=== PATIENT | male | born 1955 | race Caucasian/White ===

== ENCOUNTER 2019-07-20 13:12 | Observation (INO) ==
[2019-07-20 13:39] VITALS: BMI 25.8
--- NOTE | 2019-07-20 13:54 | DR.AMS ---
HPI - Time Seen Time seen: 13:47 - PCP Primary Care Physician: NFD - Complaint Cheif Complaint Doctors Comments: Patient is complaining of a diffuse headache for the past 2-3 hours. EMS states family member called them because patient had altered mental status when he woke up this morning he was incohorent and confused complaining of a headache. States patient went to bed 5 pm yesterday and usually sleep until noon but 1215 family notices his signs and symptoms. states he had a stroke with similar problems about four years ago and was in the hospital for three days. EMS states patient was alert with no weakness or problems walking when they evaluated him at home with equal and reactive pupils. States his glucose was 91. Patient was seeing Dr. Cool but has not got another doctor since he left. Patient knows today is Monday but states he is four months old. He chews tobacco and drinks about 3-4 beers daily. States he think he had a bleed on his last stroke. States he has been working at [employer] for three years and he has been two years and his birthday is [birth year]. He denies chest pain or SOB. He denies problems walking or any weakness. states it started last night with him getting up looking for something in his pants and could not verbalize what he was looking for. State he went through his dirty clothes and put back on a dirty shirt and did not realized he had it on. He was trying to turn the clock on with the remote control for the fan. Chief Complaint:: EMS BRINGS PT. IN WITH AMS. FAMILY INFORMS EMS THAT WHEN PT. WOKE THIS MORNING, HE WAS CONFUSED. PT. C/O HEADACHE. HX. OF CVA 4 YEARS AGO. - Reviewed Nurses Notes Reviewed: Yes - Source History Provided: Patient, EMS - Mode of Arrival Mode of Arrival: EMS - Timing Onset of Chief Complaint: 07/20/19 Came On: On Awakening Symptoms: Improving Symptom Onset: Unknown - Duration Duration: Constant How lon Duration: Hours - Quality Quality: Decreased Alertness, Confusion, Memory Loss - Severity Severity: Mild - Context Recent: None History Of: CVA - Associated Signs and Symptoms Associated Signs and Symptoms: Headache, Confusion, Change in Memory PMH - PMH Past Medical History: Yes Past Medical History: CVA Past Surgical History: No Surgical History: Unknown - Family History History of Family Medical Conditions: No - Social History Does patient currently use any type of tobacco product: Yes Have you used tobacco products in the last 12 months: Yes Type of Tobacco Use: DIPS Does any household member use tobacco: No Alcohol Use: None Do you use any recreational Drugs:: No Lives With: Family Lives Where: Home - infectious screening In the last 2 months have you had wt loss of >10#?: NO Have you had fever, night sweats or hemotysis?: No Have you traveled outside the country in the last 6 months?: No Isolation: Standard ROS - Review of Systems Constitutional: No Symptoms Reported Eyes: No Symptoms Reported ENTM: No Symptoms Reported Respiratoy: No Symptoms Reported. negative: See HPI, Productive Cough, Non- Productive Cough, Moist Cough, Dry Cough, Hacking Cough, Barking Cough, Brassy Cough, Orthopnea, Short of Breath, Stridor, Wheezing, Hemoptysis, Other Cardiovascular: No Symptoms Reported. negative: See HPI, Chest Pain, Edema, Palpitations, Syncope, Cyanosis, Skin Mottling, Other Gastrointestinal/Abdominal: No Symptoms Reported Genitourinary: No Symptoms Reported Neurological: No Symptoms Reported, Headache Musculoskeletal: No Symptoms Reported Integumentary: No Symptoms Reported. negative: See HPI, Change in Color, Change in Hair/Nails, Dryness, Lesions, Lumps, Rash, Itching, Wound, Bruises, Juandice, Other Hematologic/Lymphatic: No Symptoms Reported Endocrine: No Symptoms Reported Psychiatric: No Symptoms Reported. negative: See HPI, Anxiety, Depression, Hallucinations, Excessive crying, Suicidal, Other PE - General Limitations: No Limitations General Appearance: Alert, In No Apparent Distress - Head Head Exam: Normal Inspection, Atraumatic, Normocephalic Head Exam Physical: negative: Laceration, Abrasion, Contusion, Hematoma, Raccoon Eyes, Quiroga's Sign, Tenderness of Temporal Artery, CSF Rhinorrhea, CSF Otorrhea, Other - Eyes Eye exam: Normal Appearance, PERRL, EOMI. negative: Scleral Icterus, Conjunctival Injection, Nystagmus, Miosis, Mydrasis, Periorbital Swelling, Periorbital Tenderness, Other Pupils: Regular, Round: Bilateral, Reactive: Bilateral - ENT ENT Exam: Normal Exam, Normal Oropharynx, Normal External Ear Exam, Mucous Membranes Moist, TM's Normal Bilaterally (tobacco reminants in mouth and on lips; tongue protrudes midline) External Ear Exam: Normal External Inspection TM/Canal Exam: Bilateral Normal Nose Exam: Normal Nose Exam. negative: Sinus Tenderness, Nasal Deviation, Crepitus, Septal Hematoma, Laceration, Abrasion, Other Mouth Exam: Normal Inspection. negative: Drooling, Trismus, Lip Swelling, Tongue Elevation, Tongue Swelling, Laceration, Other Throat Exam: Normal Inspection. negative: Tonsillar Erythema, Tonsillomegaly, Tonsillar Exudate, R Peritonsillar Mass, L Peritonsillar Mass, Muffled Voice, Other - Neck Neck Exam: Normal Inspection, Full ROM, Trachea Midline. negative: Tenderness, Meningismus, Lymphadenopathy, Thyromegaly, Other - Chest Chest Inspection: Normal Inspection, Symmetric Chest Wall Rise - Respiratory Respiratory Exam: Normal Lung Sounds Bilat Respiratory Exam: Bilateral Clear to Auscultation - Cardiovascular Cardiovascular Exam: Regular Rate, Normal Rhythm, Normal Heart Sounds - Abdominal Exam Abdominal Exam: Normal Inspection, Normal Bowel Sounds, Soft. negative: Distention, Tenderness, Guarding, Rebound, Rigidity, Dimnished Bowel Sounds, Hyperactive Bowel Sounds, Hypoactive Bowel Sounds, Organomegaly, Trauma, Incision, Ascites, Mass, Bruit, Pulsatile Mass, Hernia, Other Abdominal Tenderness: negative: RUQ, RLQ, LUQ, LLQ, Epigastrium, Suprapubic, Diffuse, Mild, Moderate, Severe, Other - Extremities Extremities Exam: Normal Inspection, Full ROM, Normal Capillary Refill. negative: Tenderness, Edema, Joint Swelling, Calf Tenderness, Other - Back Back Exam: Normal Inspection, Full ROM. negative: Tenderness, (R) CVA Tenderness, (L) CVA Tenderness, Muscle Spasm, Paraspinal Tenderness, Vertebral Tenderness, Rashes, (R) Sciatic Notch Tenderness, (L) Sciatic Notch Tendern, (R) Straight Leg Raise, (L) Straight Leg Raise, Other - Neurological Neurological Exam: Alert, Oriented X3, CN II-XII Intact, Reflexes Normal. negative: Normal Gait (gait not tested) Patient Oriented To: Person, Place, Time Speech: Fluid Speech Cranial Nerve Exam: EOM Function (II, III, IV, ): Normal, Facial Sensation (V): Normal, Facial Palsy (VII): Normal, Gag reflex (XI): Normal, Spinal Ac cessory Function (XI): Normal, Tongue Deviation: Normal Cerebellar Function: Normal Vibratory/Position. negative: Normal Gait (gait not tested) Motor Strength - LUE: 5/5 Motor Strength - RUE: 5/5 Motor Strength - LLE: 5/5 Motor Strength - RLE: 5/5 Upper Motor Neuron Exam: Babinski Sign: Normal Sensory Exam Upper Extremity: Light Touch: Normal, 2 Point Discrimination: Normal DTR: bicep (L): 2+, bicep (R): 2+, Patellar (L): 2+, patellar (R): 2+ - Psychological Psychiatric Exam: Normal Affect, Normal Mood. negative: Depressed, Agitated, Anxious, Flat Affect, Manic, Homicidal Ideation, Suicidal Ideation, Other Expanded Psychiatric Exam: negative: Poor Eye Contact, Pressured Speech, Echolalia, Psychomotor Agitation, Delusional, Paranoid, Catatonic, Mute, Perseverating, Euphoric, Restlessness, Flight of Ideas, Loose Associations, Uncooperative, Refuses to Answer, Auditory Hallucinations, Visual Hallucinations, Confabulating, Other - Skin Skin Exam: Warm, Dry, Intact, Normal Color - Vitals Vital Signs: Temp Pulse Pulse Resp BP BP BP 07/20/19 15:09 17 07/20/19 15:04 78 17 124/75 07/20/19 14:00 80 17 132/75 07/20/19 13:35 98.9 F 90 17 139/75 12/30/15 10:47 133/80 01/21/14 04:00 110/66 01/20/14 16:00 167/68 Pulse Ox 07/20/19 15:09 07/20/19 15:04 95 07/20/19 14:00 95 07/20/19 13:35 94 L 12/30/15 10:47 01/21/14 04:00 01/20/14 16:00 Course - Consultation Called: 15:28 Call Returned: 15:28 (Dr. Melton to admit) - Education/Counseling Education/Counseling: Patient, Family Educated On: Treatment, Diagnosis, Needs for Follow Up ROR - Labs Reviewed Laboratory Results Reviewed?: Yes (All labs and x-ray results reviewed and discussed with patient and spouse) Result Diagrams: 07/20/19 14:02 07/20/19 14:02 - XRAY XRAY Interpreted by: Radiologist (CT brain: No acute intracranial abnormalities.) XRAY Findings: CXR: Mild nonspecific pulmonary hyperinflation. fibrosis right apex - EKG Rate: 73 [place]: Normal Rhythm: NSR Block: None Hypertrophy: None ST: Nonsp - Labs Reviewed Laboratory: WBC 7.3 X10^3/uL (3.6-10.0) 07/20/19 14:02 RBC 4.63 X10^6/uL (4.7-6.0) L 07/20/19 14:02 Hgb 15.5 g/dL (13.5-18.0) 07/20/19 14:02 Hct 44.5 % (42.0-54.0) 07/20/19 14:02 MCV 96.1 fL (80.0-100.0) 07/20/19 14:02 MCH 33.4 pg (27.0-34.0) 07/20/19 14:02 MCHC 34.8 g/dL (33.0-35.0) 07/20/19 14:02 RDW 12.6 % (11.6-16.5) 07/20/19 14:02 Plt Count 339 X10^3/uL (150.0-450.0) 07/20/19 14:02 MPV 6.8 fL (7.4-11.0) L 07/20/19 14:02 Neut % (Auto) 66.7 % (42.0-75.0) 07/20/19 14:02 Lymph % (Auto) 19.5 % (21.0-51.0) L 07/20/19 14:02 [place] % (Auto) 11.3 % (0.0-13.0) 07/20/19 14:02 Eos % (Auto) 1.8 % (0.9-2.9) 07/20/19 14:02 Baso % (Auto) 0.7 % (0.2-1.0) 07/20/19 14:02 Neut # (Auto) 4.9 x10^3/uL (2.2-4.8) H 07/20/19 14:02 Lymph # (Auto) 1.4 X10^3/uL (1.3-2.9) 07/20/19 14:02 [place] # (Auto) 0.8 x10^3/uL (0.3-0.8) 07/20/19 14:02 Eos # (Auto) 0.1 x10^3/uL (0.0-0.2) 07/20/19 14:02 Baso # (Auto) 0.1 X10^3/uL (0.0-0.1) 07/20/19 14:02 Absolute Nucleated RBC 0.0 /100WBC 07/20/19 14:02 PT 13.3 SECONDS (11.8-14.3) 07/20/19 14:02 INR Target Range - 07/20/19 14:02 INR 1.05 (0.8-1.3) 07/20/19 14:02 APTT 30.8 SECONDS (22.9-36.5) 07/20/19 14:02 PTT Comment - 07/20/19 14:02 D-Dimer < 100 ng/mL (0-400) 07/20/19 14:02 Sodium 142 mmol/L (136-145) 07/20/19 14:02 Corrected Sodium TNP 07/20/19 14:02 Potassium 4.3 mmol/L (3.5-5.1) 07/20/19 14:02 Chloride 103 mmol/L (98-107) 07/20/19 14:02 Carbon Dioxide 27.3 mmol/L (21-32) 07/20/19 14:02 BUN 9 mg/dL (7-18) 07/20/19 14:02 Creatinine 1.25 mg/dL (0.70-1.30) 07/20/19 14:02 Est GFR (MDRD) Af Amer > 60 (>60) 07/20/19 14:02 Est GFR (MDRD) Non-Af > 60 (>60) 07/20/19 14:02 Glucose 93 mg/dL (65-99) 07/20/19 14:02 Calcium 8.7 mg/dL (8.5-10.1) 07/20/19 14:02 Corrected Calcium TNP 07/20/19 14:02 Magnesium 2.0 mg/dL (1.7-2.9) 07/20/19 14:02 Total Bilirubin 0.70 mg/dL (0.2-1.0) 07/20/19 14:02 AST 20 Units/L (15-37) 07/20/19 14:02 ALT 23 Units/L (12-78) 07/20/19 14:02 Alkaline Phosphatase 37 Units/L (46-116) L 07/20/19 14:02 Creatine Kinase 50 Units/L (39-308) 07/20/19 14:02 CK-MB (CK-2) < 1.0 ng/mL (0-4.0) 07/20/19 14:02 CK/CKMB % Calc 2.0 % (<4) 07/20/19 14:02 Troponin I < 0.02 ng/mL (0-1.5) 07/20/19 14:02 Total Protein 7.2 g/dL (6.4-8.2) 07/20/19 14:02 Albumin 3.8 g/dL (3.4-5.0) 07/20/19 14:02 Globulin 3.4 g/dL (2.5-4.5) 07/20/19 14:02 Albumin/Globulin Ratio 1.1 Ratio (1.1-2.1) 07/20/19 14:02 Specimen Type Random urine 07/20/19 14:13 Urine Color Yellow (YELLOW) 07/20/19 14:13 Urine Appearance Clear (CLEAR) 07/20/19 14:13 Urine pH 5.0 (5.0 - 8.0) 07/20/19 14:13 Ur Specific [place] 1.025 (1.000-1.030) 07/20/19 14:13 Urine Protein Negative (NEGATIVE) 07/20/19 14:13 Urine Glucose (UA) Negative (NEGATIVE) 07/20/19 14:13 Urine Ketones 3+ (NEGATIVE) 07/20/19 14:13 Urine Occult Blood Negative (NEGATIVE) 07/20/19 14:13 Urine Nitrite Negative (NEGATIVE) 07/20/19 14:13 Urine Bilirubin Negative (NEGATIVE) 07/20/19 14:13 Urine Urobilinogen Normal (NORMAL) 07/20/19 14:13 Ur Leukocyte Esterase Negative (NEGATIVE) 07/20/19 14:13 Urine Opiates Screen Negative (NEG=<300) 07/20/19 14:13 Urine Methadone Screen Negative (NEG=<300) 07/20/19 14:13 Ur Barbiturates Screen Negative (NEG=<200) 07/20/19 14:13 Ur Phencyclidine Scrn Negative (NEG=<25) 07/20/19 14:13 Ur Amphetamines Screen Negative (NEG=<1000) 07/20/19 14:13 U Benzodiazepines Scrn Negative (NEG=<200) 07/20/19 14:13 Urine Cocaine Screen Negative (NEG=<300) 07/20/19 14:13 U Marijuana (THC) Screen Negative (NEG=<50) 07/20/19 14:13 Ethyl Alcohol mg/dL < 3 mg/dL (0-19.9) 07/20/19 14:02 Opioid - Opioid Risk Tool Age (Margarito box if 16-45): No History of Preadolescent Sexual Abuse: No Total: 0 Total Score Risk Category: Low Risk - Diagnosis Discharge Problem: Acute alteration in mental status, Confusion with non-focal neuro exam, Admits to alcohol use - Discharge Plan Disposition: ADMITTED INPATIENT Condition: Stable - Follow ups/Referrals Follow ups/Referrals: NFD,None [Primary Care Provider] - 3 days - Instructions
--- NOTE | 2019-07-20 13:57 | CT ---
HISTORYAltered mental statusSTUDYCT of the brain without contrastCOMPARISONNoneNoncontrast CT of the head is performed in the axial plane and reconstructed with multiplanar imaging techniques.FINDINGSThere is no evidence of an acute intracranial hemorrhage or extra-axial fluid collection. There is no mass effect, shift or evidence of cerebral edema. The ventricular size is normal. Age-appropriate cortical volume loss is evident. There is no well-defined, cortically based, acute stage, large artery territorial infarction. The imaged paranasal sinuses and mastoid air cells are predominantly clear. The calvarium is intact.IMPRESSIONNo acute intracranial abnormalities.If there is definite, focal, acute neurologic deficit, follow up imaging is recommended to evaluate for evolutionary changes. MRI with DWI provides the highest level of initial sensitivity for the detection of acute ischemic infarcts.Electronically signed by: FAVIO WHITNEY (Jul 20, 2019 13:55:50)
[2019-07-20] MEDS ORDERED: NS 1000 ML 1,000 ML IV SCH (14:00)
[2019-07-20 14:10] LABS: BASOPHILS # (AUTO) 0.1 X10^3/uL (0.0-0.1); BASOPHILS % (AUTO) 0.7 % (0.2-1.0); EOSINOPHILS # (AUTO) 0.1 x10^3/uL (0.0-0.2); EOSINOPHILS % (AUTO) 1.8 % (0.9-2.9); HEMATOCRIT 44.5 % (42.0-54.0); HEMOGLOBIN 15.5 g/dL (13.5-18.0); LYMPHOCYTES # (AUTO) 1.4 X10^3/uL (1.3-2.9); LYMPHOCYTES % (AUTO) 19.5 % (21.0-51.0); MEAN CORPUSCULAR HEMOGLOBIN 33.4 pg (27.0-34.0); MEAN CORPUSCULAR HGB CONC 34.8 g/dL (33.0-35.0); MEAN CORPUSCULAR VOLUME 96.1 fL (80.0-100.0); MEAN PLATELET VOLUME 6.8 fL (7.4-11.0); MONOCYTES # (AUTO) 0.8 x10^3/uL (0.3-0.8); MONOCYTES % (AUTO) 11.3 % (0.0-13.0); NEUTROPHILS # (AUTO) 4.9 x10^3/uL (2.2-4.8); NEUTROPHILS % (AUTO) 66.7 % (42.0-75.0); PLATELET COUNT 339 X10^3/uL (150.0-450.0); RED BLOOD COUNT 4.63 X10^6/uL (4.7-6.0); RED CELL DISTRIBUTION WIDTH 12.6 % (11.6-16.5); WHITE BLOOD COUNT 7.3 X10^3/uL (3.6-10.0)
[2019-07-20] MEDS ORDERED: NS 1000 ML 1,000 ML ONE (14:14)
--- NOTE | 2019-07-20 14:18 | RAD ---
HISTORYChest painSTUDYAP chestCOMPARISONNoneFINDINGSNormal heart size. The lungs are clear, slightly hyperaerated. There is no evidence for infiltrate, pulmonary edema, pneumothorax or pleural fluid. There is suggestion of mild fibrotic scarring in the right apex, partly obscured by overlying bony structures.IMPRESSIONMild nonspecific pulmonary hyperinflation. 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
[2019-07-20] MEDS ORDERED: TORADOL 30 MG VIAL IVP ONE (14:21)
[2019-07-20 14:27] LABS: BLOOD UREA NITROGEN 9 mg/dL (7-18); CALCIUM 8.7 mg/dL (8.5-10.1); CARBON DIOXIDE 27.3 mmol/L (21-32); CHLORIDE 103 mmol/L (98-107); CREATININE 1.25 mg/dL (0.70-1.30); SODIUM 142 mmol/L (136-145); TROPONIN I < 0.02 ng/mL (0-1.5); eGFR NON BLACK RACES > 60 (>60)
[2019-07-20 14:30] LABS: BILIRUBIN,URINE NEGATIVE (NEGATIVE); BLOOD/HEMOGLOBIN,URINE NEGATIVE (NEGATIVE); GLUCOSE, URINE NEGATIVE (NEGATIVE); KETONES,URINE 3+ (NEGATIVE); LEUKOCYTE ESTERASE ,URINE NEGATIVE (NEGATIVE); NITRITES,URINE NEGATIVE (NEGATIVE); PROTEIN,URINE NEGATIVE (NEGATIVE); UROBILINOGEN,URINE NORMAL (NORMAL)
[2019-07-20 14:31] LABS: ALANINE AMINOTRANSFERASE 23 Units/L (12-78); ALBUMIN 3.8 g/dL (3.4-5.0); ALKALINE PHOSPHATASE 37 Units/L (46-116); ASPARTATE AMINO TRANSFERASE 20 Units/L (15-37); BLOOD ALCOHOL < 3 mg/dL (0-19.9); CREATINE KINASE 50 Units/L (39-308); CREATINE KINASE MB < 1.0 ng/mL (0-4.0); TOTAL PROTEIN 7.2 g/dL (6.4-8.2)
[2019-07-20 14:31] LABS: APPEARANCE,URINE CLEAR (CLEAR); COLOR,URINE YELLOW (YELLOW)
[2019-07-20] MEDS ORDERED: TORADOL 30 MG VIAL ONE (15:07)
[2019-07-20] MEDS ORDERED: THIAMINE HCL INJ IM ONE (15:25)
[2019-07-20] MEDS: NS 1000 ML 1,000 ML IV SCH ×2 (16:30→23:31)
[2019-07-20] MEDS ORDERED: THIAMINE HCL INJ ONE (17:53)
[2019-07-20] MEDS ORDERED: TYLENOL 325 MG TAB PO PRN (19:32)
[2019-07-21 05:37] LABS: BASOPHILS % (AUTO) 0.6 % (0.2-1.0); EOSINOPHILS # (AUTO) 0.3 x10^3/uL (0.0-0.2); EOSINOPHILS % (AUTO) 4.1 % (0.9-2.9); HEMATOCRIT 40.4 % (42.0-54.0); LYMPHOCYTES # (AUTO) 1.7 X10^3/uL (1.3-2.9); LYMPHOCYTES % (AUTO) 25.3 % (21.0-51.0); MEAN CORPUSCULAR HEMOGLOBIN 33.4 pg (27.0-34.0); MEAN CORPUSCULAR HGB CONC 34.7 g/dL (33.0-35.0); MEAN CORPUSCULAR VOLUME 96.2 fL (80.0-100.0); MEAN PLATELET VOLUME 7.5 fL (7.4-11.0); MONOCYTES # (AUTO) 0.8 x10^3/uL (0.3-0.8); MONOCYTES % (AUTO) 12.9 % (0.0-13.0); NEUTROPHILS # (AUTO) 3.7 x10^3/uL (2.2-4.8); NEUTROPHILS % (AUTO) 57.1 % (42.0-75.0); PLATELET COUNT 295 X10^3/uL (150.0-450.0); RED CELL DISTRIBUTION WIDTH 12.2 % (11.6-16.5); WHITE BLOOD COUNT 6.5 X10^3/uL (3.6-10.0)
[2019-07-21 06:02] LABS: CHOL/HDL RATIO 2.3 (0.0-5.0)
[2019-07-21 08:09] LABS: ALANINE AMINOTRANSFERASE 21 Units/L (12-78); ALBUMIN 3.1 g/dL (3.4-5.0); ALKALINE PHOSPHATASE 32 Units/L (46-116); ASPARTATE AMINO TRANSFERASE 22 Units/L (15-37); BLOOD UREA NITROGEN 8 mg/dL (7-18); CALCIUM 8.2 mg/dL (8.5-10.1); CARBON DIOXIDE 26.6 mmol/L (21-32); CHLORIDE 106 mmol/L (98-107); COR CA(FOR HYPOALB) 8.9 mg/dL (8.5-10.1); CREATININE 1.01 mg/dL (0.70-1.30); SODIUM 143 mmol/L (136-145); TOTAL PROTEIN 6.1 g/dL (6.4-8.2); eGFR NON BLACK RACES > 60 (>60)
[2019-07-21] MEDS: NS 1000 ML 1,000 ML IV SCH ×3 (09:00→23:10)
--- NOTE | 2019-07-21 11:15 | DR.H&P ---
H&P History & Physical for Day of: H&P Date: 07/21/19 Chief Complaint Chief Complaint: Confusion, Weakness Allergies Allergies Allergy/AdvReac Type Severity Reaction Status Date / Time No Known Drug Allergies Allergy Verified 07/20/19 13:39 History of Present Illness History of Present Illness: Pt is a 64 yo m pmhx CVA, presenting after having acute confusion, aphasia, and some weakness on left side of body. Per who witnessed the event, pt woke up early Monday morning and was confused, using the remote control for the fan to control the clock. He was also mixing up his words and having difficulty findings the correct words to say. She did not notice any facial droop or slurred speech but patient does state he feels weaker on left side of body. His became concerned and called 911. In ED, EKG:NSR, CT head negative, EtOH <3, and UDS negative. Past Medical History Past Medical History: CVA Past Surgical History Surgical History: No History Family History Family Medical History: Hypertension Social History Does patient currently use any type of tobacco product: Yes Have you used tobacco products in the last 12 months: Yes Type of Tobacco Use: Dips Does any household member use tobacco: No Alcohol Use: DAILY Drug Use: None Medications Home Medications: No Known Drug Allergies Allergy (Verified 07/20/19 13:39) CONTINUE taking the following medications NK 07/20/19 [History] Labs Result Diagrams: 07/21/19 04:34 07/21/19 04:34 Labs: Laboratory WBC 6.5 X10^3/uL (3.6-10.0) 07/21/19 04:34 RBC 4.20 X10^6/uL (4.7-6.0) L 07/21/19 04:34 Hgb 14.0 g/dL (13.5-18.0) 07/21/19 04:34 Hct 40.4 % (42.0-54.0) L 07/21/19 04:34 MCV 96.2 fL (80.0-100.0) 07/21/19 04:34 MCH 33.4 pg (27.0-34.0) 07/21/19 04:34 MCHC 34.7 g/dL (33.0-35.0) 07/21/19 04:34 RDW 12.2 % (11.6-16.5) 07/21/19 04:34 Plt Count 295 X10^3/uL (150.0-450.0) 07/21/19 04:34 MPV 7.5 fL (7.4-11.0) 07/21/19 04:34 Neut % (Auto) 57.1 % (42.0-75.0) 07/21/19 04:34 Lymph % (Auto) 25.3 % (21.0-51.0) 07/21/19 04:34 [place] % (Auto) 12.9 % (0.0-13.0) 07/21/19 04:34 Eos % (Auto) 4.1 % (0.9-2.9) H 07/21/19 04:34 Baso % (Auto) 0.6 % (0.2-1.0) 07/21/19 04:34 Neut # (Auto) 3.7 x10^3/uL (2.2-4.8) 07/21/19 04:34 Lymph # (Auto) 1.7 X10^3/uL (1.3-2.9) 07/21/19 04:34 [place] # (Auto) 0.8 x10^3/uL (0.3-0.8) 07/21/19 04:34 Eos # (Auto) 0.3 x10^3/uL (0.0-0.2) H 07/21/19 04:34 Baso # (Auto) 0.0 X10^3/uL (0.0-0.1) 07/21/19 04:34 Absolute Nucleated RBC 0.0 /100WBC 07/21/19 04:34 PT 13.3 SECONDS (11.8-14.3) 07/20/19 14:02 INR Target Range - 07/20/19 14:02 INR 1.05 (0.8-1.3) 07/20/19 14:02 APTT 30.8 SECONDS (22.9-36.5) 07/20/19 14:02 PTT Comment - 07/20/19 14:02 Fibrinogen 359 mg/dL (239-489) 07/20/19 14:02 D-Dimer < 100 ng/mL (0-400) 07/20/19 14:02 Sodium 143 mmol/L (136-145) 07/21/19 04:34 Corrected Sodium TNP 07/21/19 04:34 Potassium 4.1 mmol/L (3.5-5.1) 07/21/19 04:34 Chloride 106 mmol/L (98-107) 07/21/19 04:34 Carbon Dioxide 26.6 mmol/L (21-32) 07/21/19 04:34 BUN 8 mg/dL (7-18) 07/21/19 04:34 Creatinine 1.01 mg/dL (0.70-1.30) 07/21/19 04:34 Est GFR (MDRD) Af Amer > 60 (>60) 07/21/19 04:34 Est GFR (MDRD) Non-Af > 60 (>60) 07/21/19 04:34 Glucose 87 mg/dL (65-99) 07/21/19 04:34 Calcium 8.2 mg/dL (8.5-10.1) L 07/21/19 04:34 Corrected Calcium 8.9 mg/dL (8.5-10.1) 07/21/19 04:34 Magnesium 2.0 mg/dL (1.7-2.9) 07/20/19 14:02 Total Bilirubin 0.50 mg/dL (0.2-1.0) 07/21/19 04:34 AST 22 Units/L (15-37) 07/21/19 04:34 ALT 21 Units/L (12-78) 07/21/19 04:34 Alkaline Phosphatase 32 Units/L (46-116) L 07/21/19 04:34 Creatine Kinase 50 Units/L (39-308) 07/20/19 14:02 CK-MB (CK-2) < 1.0 ng/mL (0-4.0) 07/20/19 14:02 CK/CKMB % Calc 2.0 % (<4) 07/20/19 14:02 Troponin I < 0.02 ng/mL (0-1.5) 07/20/19 14:02 Total Protein 6.1 g/dL (6.4-8.2) L 07/21/19 04:34 Albumin 3.1 g/dL (3.4-5.0) L 07/21/19 04:34 Globulin 3.0 g/dL (2.5-4.5) 07/21/19 04:34 Albumin/Globulin Ratio 1.0 Ratio (1.1-2.1) L 07/21/19 04:34 Triglycerides 33 mg/dL (0-150) 07/21/19 04:34 Cholesterol 131 mg/dL (0-200) 07/21/19 04:34 LDL Cholesterol, Calc 67 mg/dL (0-100) 07/21/19 04:34 HDL Cholesterol 57 mg/dL (40-60) 07/21/19 04:34 Cholesterol/HDL Ratio 2.3 (0.0-5.0) 07/21/19 04:34 Specimen Type Random urine 07/20/19 14:13 Urine Color Yellow (YELLOW) 07/20/19 14:13 Urine Appearance Clear (CLEAR) 07/20/19 14:13 Urine pH 5.0 (5.0 - 8.0) 07/20/19 14:13 Ur Specific [place] 1.025 (1.000-1.030) 07/20/19 14:13 Urine Protein Negative (NEGATIVE) 07/20/19 14:13 Urine Glucose (UA) Negative (NEGATIVE) 07/20/19 14:13 Urine Ketones 3+ (NEGATIVE) 07/20/19 14:13 Urine Occult Blood Negative (NEGATIVE) 07/20/19 14:13 Urine Nitrite Negative (NEGATIVE) 07/20/19 14:13 Urine Bilirubin Negative (NEGATIVE) 07/20/19 14:13 Urine Urobilinogen Normal (NORMAL) 07/20/19 14:13 Ur Leukocyte Esterase Negative (NEGATIVE) 07/20/19 14:13 Urine Opiates Screen Negative (NEG=<300) 07/20/19 14:13 Urine Methadone Screen Negative (NEG=<300) 07/20/19 14:13 Ur Barbiturates Screen Negative (NEG=<200) 07/20/19 14:13 Ur Phencyclidine Scrn Negative (NEG=<25) 07/20/19 14:13 Ur Amphetamines Screen Negative (NEG=<1000) 07/20/19 14:13 U Benzodiazepines Scrn Negative (NEG=<200) 07/20/19 14:13 Urine Cocaine Screen Negative (NEG=<300) 07/20/19 14:13 U Marijuana (THC) Screen Negative (NEG=<50) 07/20/19 14:13 Ethyl Alcohol mg/dL < 3 mg/dL (0-19.9) 07/20/19 14:02 Review of Systems Constitutional: No Symptoms Reported Eyes: No Symptoms Reported ENT: No Symptoms Reported Respiratory: No Symptoms Reported Cardiovascular: No Symptoms Reported Gastrointestinal: No Symptoms Reported Genitourinary: No Symptoms Reported Musculoskeletal: No Symptoms Reported Skin: No Symptoms Reported Neurological: Weakness (LUE and LLE ), Confusion and Other (Aphasia ) Physical Exam Vital Signs: Temperature 97.7 F Pulse Rate [Right Brachial] 68 Pulse Rate [Left Brachial] 94 Pulse Rate 90 Respiratory Rate 20 Blood Pressure [Left Arm] 123/72 Blood Pressure [Right Arm] 121/73 Blood Pressure 139/75 O2 Sat by Pulse Oximetry 97 Oriented: Person and Place Eyes: Normal Ear: Normal Nose: Normal Throat: Normal Respiratory: Clear Throughout Cardiovascular: Normal : Normal Auscultation: Bowel Sounds: Normal Palpation: Normal Tenderness: Normal Skin: Normal Psychiatric: Normal Mood Description: Calm Speech Pattern: Aphasic (Unable to say appropriate words to describe) Assessment/Plan (1) Aphasia: Status: Acute Plan: Will order MRI brain, Echo, and Carotid U/S. Labs, including RPR and HIV. Continue to monitor and follow up AM labs. (2) Confusion: Status: Acute (3) Weakness: Status: Acute Plan: LUE and LLE strength 4/5 (4) Admits to alcohol use: Status: Acute Plan: Multivitamin, Thiamine Continue to monitor for withdrawal sx, Ativan prn. Review H&P Reviewed: Yes Patient was examined?: Yes
[2019-07-21] MEDS: VITAMIN B-1 PO SCH (14:17)
[2019-07-21] MEDS: TAB-A-VITE PO SCH (14:17)
[2019-07-21] MEDS: ASPIRIN 81 MG CHEWTAB PO SCH (14:17)
[2019-07-21] MEDS: ATIVAN TAB 0.5 MG PO PRN (14:18)
[2019-07-21] MEDS: LIPITOR TAB 40 MG PO SCH (14:18)
[2019-07-22 05:31] LABS: BASOPHILS % (AUTO) 0.7 % (0.2-1.0); EOSINOPHILS # (AUTO) 0.3 x10^3/uL (0.0-0.2); EOSINOPHILS % (AUTO) 3.6 % (0.9-2.9); HEMATOCRIT 39.3 % (42.0-54.0); HEMOGLOBIN 13.7 g/dL (13.5-18.0); LYMPHOCYTES # (AUTO) 1.9 X10^3/uL (1.3-2.9); LYMPHOCYTES % (AUTO) 26.6 % (21.0-51.0); MEAN CORPUSCULAR HEMOGLOBIN 33.6 pg (27.0-34.0); MEAN CORPUSCULAR HGB CONC 34.8 g/dL (33.0-35.0); MEAN CORPUSCULAR VOLUME 96.4 fL (80.0-100.0); MEAN PLATELET VOLUME 7.3 fL (7.4-11.0); MONOCYTES # (AUTO) 0.7 x10^3/uL (0.3-0.8); MONOCYTES % (AUTO) 9.4 % (0.0-13.0); NEUTROPHILS # (AUTO) 4.3 x10^3/uL (2.2-4.8); NEUTROPHILS % (AUTO) 59.7 % (42.0-75.0); PLATELET COUNT 305 X10^3/uL (150.0-450.0); RED BLOOD COUNT 4.08 X10^6/uL (4.7-6.0); RED CELL DISTRIBUTION WIDTH 12.9 % (11.6-16.5); WHITE BLOOD COUNT 7.2 X10^3/uL (3.6-10.0)
[2019-07-22 05:36] LABS: ALANINE AMINOTRANSFERASE 17 Units/L (12-78); ALBUMIN 2.9 g/dL (3.4-5.0); ALKALINE PHOSPHATASE 26 Units/L (46-116); ASPARTATE AMINO TRANSFERASE 13 Units/L (15-37); BLOOD UREA NITROGEN 4 mg/dL (7-18); CALCIUM 7.8 mg/dL (8.5-10.1); CARBON DIOXIDE 26.6 mmol/L (21-32); CHLORIDE 108 mmol/L (98-107); CHOL/HDL RATIO 2.6 (0.0-5.0); CHOLESTEROL 131 mg/dL (0-200); COR CA(FOR HYPOALB) 8.7 mg/dL (8.5-10.1); CREATININE 0.93 mg/dL (0.70-1.30); HDL CHOLESTEROL 50 mg/dL (40-60); SODIUM 143 mmol/L (136-145); TOTAL PROTEIN 5.8 g/dL (6.4-8.2); TRIGLYCERIDES 41 mg/dL (0-150); eGFR NON BLACK RACES > 60 (>60)
--- NOTE | 2019-07-22 08:48 | VAS ---
HISTORYAcute confusionSTUDYCarotid duplex ultrasoundCOMPARISONNoneFINDINGSThere is a small calcified plaque in the left carotid bulb near the external carotid artery. There is good antegrade flow in the vertebral arteries. Peak systolic velocity in the right internal carotid artery is 78.3 cm/second and in the distal right common carotid artery is 67.3 for ratio of 1.16. Peak systolic velocity in the left internal carotid artery is 83.8 cm/second and in the distal left common carotid artery is 88.2 for ratio 0.96.IMPRESSIONno evidence for carotid stenosis.Electronically signed by: LILIBETH SARGENT (Jul 22, 2019 08:46:53)
[2019-07-22] MEDS: NS 1000 ML 1,000 ML IV SCH ×3 (08:52→19:23)
[2019-07-22] MEDS: TAB-A-VITE PO SCH (08:55)
[2019-07-22] MEDS: LIPITOR TAB 40 MG PO SCH (08:55)
[2019-07-22] MEDS: ASPIRIN 81 MG CHEWTAB PO SCH (08:56)
--- NOTE | 2019-07-22 09:21 | PCM.PROG ---
Progress Note Progress Note for Day of Date of Exam: 07/22/19 Subjective Subjective: Pt is a 64 yo m pmhx CVA, admitted for CVA rule out after having acute confusion, aphasia, and some weakness on left side of body. Today pt reports feeling a little better. He believes his strength has returned and he was able to verbalize the date when asked. Labs:RPR negative, HIV/MRI brai n/Echo/Carotid U/S pending. Pt is scheduled today to have imaging done. Continue to monitor and follow up results. Past Medical Family Social History Past Med/Fam/Surg Hx: No changes since H&P Allergies: Allergies No Known Drug Allergies Allergy (Verified 07/20/19 13:39) Review of Systems ROS: No change since H&P Vital Signs and I&O's Vital Signs: Temperature 98.3 F Pulse Rate [Right Brachial] 73 Pulse Rate [Left Brachial] 94 Pulse Rate 90 Respiratory Rate 20 Blood Pressure [Left Arm] 116/69 Blood Pressure [Right Arm] 136/76 Blood Pressure 139/75 O2 Sat by Pulse Oximetry 97 Intake and Output: Intake & Output 07/19/19 07/20/19 07/21/19 07/22/19 23:59 23:59 23:59 23:59 Intake Total 860 / 860 2565 / 2565 0 / 0 Output Total 350 / 350 450 / 450 Balance 510 / 510 2115 / 2115 0 / 0 Physical Exam Oriented: Time, Person and Place Eyes: Normal Ear: Normal Nose: Normal Throat: Normal Respiratory: Normal Cardiovascular: Normal : Normal Auscultation: Bowel Sounds: Normal Tenderness: Normal Skin: Normal Musculoskeletal: Normal Psychiatric: Normal Mood Description: Calm and Appropriate Speech Pattern: Clear and Appropriate Laboratory and Diagnostics Result Diagrams: 07/22/19 04:40 07/22/19 04:40 Labs: Laboratory WBC 7.2 X10^3/uL (3.6-10.0) 07/22/19 04:40 RBC 4.08 X10^6/uL (4.7-6.0) L 07/22/19 04:40 Hgb 13.7 g/dL (13.5-18.0) 07/22/19 04:40 Hct 39.3 % (42.0-54.0) L 07/22/19 04:40 MCV 96.4 fL (80.0-100.0) 07/22/19 04:40 MCH 33.6 pg (27.0-34.0) 07/22/19 04:40 MCHC 34.8 g/dL (33.0-35.0) 07/22/19 04:40 RDW 12.9 % (11.6-16.5) 07/22/19 04:40 Plt Count 305 X10^3/uL (150.0-450.0) 07/22/19 04:40 MPV 7.3 fL (7.4-11.0) L 07/22/19 04:40 Neut % (Auto) 59.7 % (42.0-75.0) 07/22/19 04:40 Lymph % (Auto) 26.6 % (21.0-51.0) 07/22/19 04:40 [place] % (Auto) 9.4 % (0.0-13.0) 07/22/19 04:40 Eos % (Auto) 3.6 % (0.9-2.9) H 07/22/19 04:40 Baso % (Auto) 0.7 % (0.2-1.0) 07/22/19 04:40 Neut # (Auto) 4.3 x10^3/uL (2.2-4.8) 07/22/19 04:40 Lymph # (Auto) 1.9 X10^3/uL (1.3-2.9) 07/22/19 04:40 [place] # (Auto) 0.7 x10^3/uL (0.3-0.8) 07/22/19 04:40 Eos # (Auto) 0.3 x10^3/uL (0.0-0.2) H 07/22/19 04:40 Baso # (Auto) 0.0 X10^3/uL (0.0-0.1) 07/22/19 04:40 Absolute Nucleated RBC 0.1 /100WBC 07/22/19 04:40 PT 13.3 SECONDS (11.8-14.3) 07/20/19 14:02 INR Target Range - 07/20/19 14:02 INR 1.05 (0.8-1.3) 07/20/19 14:02 APTT 30.8 SECONDS (22.9-36.5) 07/20/19 14:02 PTT Comment - 07/20/19 14:02 Fibrinogen 359 mg/dL (239-489) 07/20/19 14:02 D-Dimer < 100 ng/mL (0-400) 07/20/19 14:02 Sodium 143 mmol/L (136-145) 07/22/19 04:40 Corrected Sodium TNP 07/22/19 04:40 Potassium 4.0 mmol/L (3.5-5.1) 07/22/19 04:40 Chloride 108 mmol/L (98-107) H 07/22/19 04:40 Carbon Dioxide 26.6 mmol/L (21-32) 07/22/19 04:40 BUN 4 mg/dL (7-18) L 07/22/19 04:40 Creatinine 0.93 mg/dL (0.70-1.30) 07/22/19 04:40 Est GFR (MDRD) Af Amer > 60 (>60) 07/22/19 04:40 Est GFR (MDRD) Non-Af > 60 (>60) 07/22/19 04:40 Glucose 95 mg/dL (65-99) 07/22/19 04:40 Calcium 7.8 mg/dL (8.5-10.1) L 07/22/19 04:40 Corrected Calcium 8.7 mg/dL (8.5-10.1) 07/22/19 04:40 Magnesium 2.0 mg/dL (1.7-2.9) 07/20/19 14:02 Total Bilirubin 0.40 mg/dL (0.2-1.0) 07/22/19 04:40 AST 13 Units/L (15-37) L 07/22/19 04:40 ALT 17 Units/L (12-78) 07/22/19 04:40 Alkaline Phosphatase 26 Units/L (46-116) L 07/22/19 04:40 Creatine Kinase 50 Units/L (39-308) 07/20/19 14:02 CK-MB (CK-2) < 1.0 ng/mL (0-4.0) 07/20/19 14:02 CK/CKMB % Calc 2.0 % (<4) 07/20/19 14:02 Troponin I < 0.02 ng/mL (0-1.5) 07/20/19 14:02 Total Protein 5.8 g/dL (6.4-8.2) L 07/22/19 04:40 Albumin 2.9 g/dL (3.4-5.0) L 07/22/19 04:40 Globulin 2.9 g/dL (2.5-4.5) 07/22/19 04:40 Albumin/Globulin Ratio 1.0 Ratio (1.1-2.1) L 07/22/19 04:40 Triglycerides 41 mg/dL (0-150) 07/22/19 04:40 Cholesterol 131 mg/dL (0-200) 07/22/19 04:40 LDL Cholesterol, Calc 73 mg/dL (0-100) 07/22/19 04:40 HDL Cholesterol 50 mg/dL (40-60) 07/22/19 04:40 Cholesterol/HDL Ratio 2.6 (0.0-5.0) 07/22/19 04:40 TSH 3rd Generation 3.532 uIU/mL (0.358-3.74) 07/21/19 04:34 Specimen Type Random urine 07/20/19 14:13 Urine Color Yellow (YELLOW) 07/20/19 14:13 Urine Appearance Clear (CLEAR) 07/20/19 14:13 Urine pH 5.0 (5.0 - 8.0) 07/20/19 14:13 Ur Specific [place] 1.025 (1.000-1.030) 07/20/19 14:13 Urine Protein Negative (NEGATIVE) 07/20/19 14:13 Urine Glucose (UA) Negative (NEGATIVE) 07/20/19 14:13 Urine Ketones 3+ (NEGATIVE) 07/20/19 14:13 Urine Occult Blood Negative (NEGATIVE) 07/20/19 14:13 Urine Nitrite Negative (NEGATIVE) 07/20/19 14:13 Urine Bilirubin Negative (NEGATIVE) 07/20/19 14:13 Urine Urobilinogen Normal (NORMAL) 07/20/19 14:13 Ur Leukocyte Esterase Negative (NEGATIVE) 07/20/19 14:13 Urine Opiates Screen Negative (NEG=<300) 07/20/19 14:13 Urine Methadone Screen Negative (NEG=<300) 07/20/19 14:13 Ur Barbiturates Screen Negative (NEG=<200) 07/20/19 14:13 Ur Phencyclidine Scrn Negative (NEG=<25) 07/20/19 14:13 Ur Amphetamines Screen Negative (NEG=<1000) 07/20/19 14:13 U Benzodiazepines Scrn Negative (NEG=<200) 07/20/19 14:13 Urine Cocaine Screen Negative (NEG=<300) 07/20/19 14:13 U Marijuana (THC) Screen Negative (NEG=<50) 07/20/19 14:13 Ethyl Alcohol mg/dL < 3 mg/dL (0-19.9) 07/20/19 14:02 RPR Nonreactive (NONREACTIVE) 07/21/19 04:34 Plan (1) Aphasia: Status: Acute Plan: Follow up MRI brain, Echo, and Carotid U/S. Labs, RPR NR, TSH and Lipid panel wnl, HIV pending. Continue to monitor and follow up AM labs. (2) Confusion: Status: Acute (3) Weakness: Status: Acute (4) Admits to alcohol use: Status: Acute Plan: Multivitamin, Thiamine Continue to monitor for withdrawal sx, Ativan prn.
[2019-07-22] MEDS: ATIVAN TAB 0.5 MG PO PRN (09:43)
--- NOTE | 2019-07-22 14:13 | MRI ---
BRAIN W/O CONCLINICAL INDICATION: CONFUSION, RULE OUT CVATECHNIQUE: Pre-contrast T1-w, T2, and diffusion-w sequences of the brain with ADC maps.COMPARISON:NoneFINDINGS:There is no abnormal brain parenchymal signal . There is no mass or mass-effect, or abnormal extra-axial fluid collection . Diffusion imaging shows no hyperacute, acute, or early subacute infarction . The ventricles are normal in size, shape and position . There are normal signal voids in the larger intracranial vessels . The paranasal sinuses and mastoid air cells are predominantly clear . The marrow signal pattern is within normal limits .IMPRESSION:1. No acute intracranial abnormality.Electronically signed by: JOE MORALES (Jul 22, 2019 14:13:03)
[2019-07-22] MEDS: VITAMIN B-1 PO SCH (15:09)
[2019-07-23] MEDS: NS 1000 ML 1,000 ML IV SCH ×2 (04:00→09:21)
[2019-07-23 05:38] LABS: BASOPHILS # (AUTO) 0.1 X10^3/uL (0.0-0.1); BASOPHILS % (AUTO) 0.7 % (0.2-1.0); EOSINOPHILS # (AUTO) 0.2 x10^3/uL (0.0-0.2); EOSINOPHILS % (AUTO) 3.4 % (0.9-2.9); HEMATOCRIT 40.5 % (42.0-54.0); HEMOGLOBIN 14.3 g/dL (13.5-18.0); LYMPHOCYTES # (AUTO) 1.9 X10^3/uL (1.3-2.9); LYMPHOCYTES % (AUTO) 26.8 % (21.0-51.0); MEAN CORPUSCULAR HEMOGLOBIN 33.6 pg (27.0-34.0); MEAN CORPUSCULAR HGB CONC 35.2 g/dL (33.0-35.0); MEAN CORPUSCULAR VOLUME 95.5 fL (80.0-100.0); MEAN PLATELET VOLUME 7.2 fL (7.4-11.0); MONOCYTES # (AUTO) 0.7 x10^3/uL (0.3-0.8); MONOCYTES % (AUTO) 9.4 % (0.0-13.0); NEUTROPHILS # (AUTO) 4.2 x10^3/uL (2.2-4.8); NEUTROPHILS % (AUTO) 59.7 % (42.0-75.0); PLATELET COUNT 317 X10^3/uL (150.0-450.0); RED BLOOD COUNT 4.24 X10^6/uL (4.7-6.0); RED CELL DISTRIBUTION WIDTH 12.7 % (11.6-16.5); WHITE BLOOD COUNT 7.1 X10^3/uL (3.6-10.0)
[2019-07-23 05:52] LABS: ALANINE AMINOTRANSFERASE 16 Units/L (12-78); ALBUMIN 3.1 g/dL (3.4-5.0); ALKALINE PHOSPHATASE 29 Units/L (46-116); ASPARTATE AMINO TRANSFERASE 13 Units/L (15-37); BLOOD UREA NITROGEN 6 mg/dL (7-18); CALCIUM 8.4 mg/dL (8.5-10.1); CARBON DIOXIDE 26.7 mmol/L (21-32); CHLORIDE 108 mmol/L (98-107); COR CA(FOR HYPOALB) 9.1 mg/dL (8.5-10.1); CREATININE 0.97 mg/dL (0.70-1.30); SODIUM 142 mmol/L (136-145); TOTAL PROTEIN 6.2 g/dL (6.4-8.2); eGFR NON BLACK RACES > 60 (>60)
--- NOTE | 2019-07-23 08:32 | W.DIS.FURT ---
Summary of Discharge Discharge Summary of Date Date of Exam: 07/23/19 Admission Date Date of Admission: 07/20/19 Admission Diagnosis Hospital Course: Pt is a 64 yo m pmhx CVA(per pt, previous MRI did not show any evidence), admitted for CVA rule out after having acute confusion, aphasia, and some weakness on left side of body that resolved after one day. He had MRI brain negative, Echo, and Carotid U/S negative for carotid stenosis. Labs unremarkable, EtOH <3, UDS negative, RPR negative, HIV pending(results can be followed outpt). Discussed with patient reduction in alcohol consumption and to take multivitamin daily. On day of discharge patient AOx4, no abnormalities in speech or cognitive thinking/memory noted, strength 5/5 in all extremities, and balance intact. Pt stable for discharge with instructions to follow up with PCP in 1 week. Vital Signs: Vital Signs (72 hours) 07/20/19 13:35 07/20/19 14:00 07/20/19 15:04 Temperature 98.9 F Pulse Rate 90 Pulse Rate [Left Brachial] 80 78 Pulse Rate [Right Brachial] Respiratory Rate 17 17 17 Blood Pressure 139/75 Blood Pressure [Left Arm] 132/75 Blood Pressure [Right Arm] 124/75 O2 Sat by Pulse Oximetry 94 L 95 95 07/20/19 15:09 07/20/19 15:39 07/20/19 16:00 Temperature Pulse Rate Pulse Rate [Left Brachial] 94 H Pulse Rate [Right Brachial] Respiratory Rate 17 20 17 Blood Pressure Blood Pressure [Left Arm] 123/72 Blood Pressure [Right Arm] O2 Sat by Pulse Oximetry 97 07/20/19 16:20 07/20/19 20:00 07/20/19 20:19 Temperature 97.9 F 97.5 F L Pulse Rate Pulse Rate [Left Brachial] Pulse Rate [Right Brachial] 81 76 Respiratory Rate 20 18 20 Blood Pressure Blood Pressure [Left Arm] Blood Pressure [Right Arm] 123/69 129/74 O2 Sat by Pulse Oximetry 95 98 07/20/19 21:19 07/21/19 00:00 07/21/19 04:00 Temperature 98.1 F 97.7 F Pulse Rate Pulse Rate [Left Brachial] Pulse Rate [Right Brachial] 72 68 Respiratory Rate 18 18 20 Blood Pressure Blood Pressure [Left Arm] Blood Pressure [Right Arm] 127/69 121/73 O2 Sat by Pulse Oximetry 98 97 07/21/19 08:00 07/21/19 11:47 07/21/19 16:00 Temperature 98.0 F 98.0 F 98.5 F Pulse Rate Pulse Rate [Left Brachial] Pulse Rate [Right Brachial] 76 73 62 Respiratory Rate 18 18 18 Blood Pressure Blood Pressure [Left Arm] Blood Pressure [Right Arm] 136/63 127/66 136/76 O2 Sat by Pulse Oximetry 98 97 98 07/21/19 20:00 07/22/19 00:00 07/22/19 04:00 Temperature 98.3 F 98.3 F 98.3 F Pulse Rate Pulse Rate [Left Brachial] Pulse Rate [Right Brachial] 76 73 73 Respiratory Rate 22 18 20 Blood Pressure Blood Pressure [Left Arm] 118/70 121/69 116/69 Blood Pressure [Right Arm] O2 Sat by Pulse Oximetry 100 98 97 07/22/19 08:00 07/22/19 12:00 07/22/19 16:00 Temperature 98.3 F 99.0 F 97.6 F Pulse Rate Pulse Rate [Left Brachial] Pulse Rate [Right Brachial] 62 67 75 Respiratory Rate 20 20 20 Blood Pressure Blood Pressure [Left Arm] 119/70 116/67 112/64 Blood Pressure [Right Arm] O2 Sat by Pulse Oximetry 96 98 97 07/22/19 20:00 07/23/19 00:00 07/23/19 04:00 Temperature 98.1 F 98.9 F 98.1 F Pulse Rate Pulse Rate [Left Brachial] Pulse Rate [Right Brachial] 70 68 64 Respiratory Rate 18 18 18 Blood Pressure Blood Pressure [Left Arm] 114/62 109/65 121/75 Blood Pressure [Right Arm] O2 Sat by Pulse Oximetry 97 97 98 Labs: Laboratory Last Values WBC 7.1 X10^3/uL (3.6-10.0) 07/23/19 05:04 RBC 4.24 X10^6/uL (4.7-6.0) L 07/23/19 05:04 Hgb 14.3 g/dL (13.5-18.0) 07/23/19 05:04 Hct 40.5 % (42.0-54.0) L 07/23/19 05:04 MCV 95.5 fL (80.0-100.0) 07/23/19 05:04 MCH 33.6 pg (27.0-34.0) 07/23/19 05:04 MCHC 35.2 g/dL (33.0-35.0) H 07/23/19 05:04 RDW 12.7 % (11.6-16.5) 07/23/19 05:04 Plt Count 317 X10^3/uL (150.0-450.0) 07/23/19 05:04 MPV 7.2 fL (7.4-11.0) L 07/23/19 05:04 Neut % (Auto) 59.7 % (42.0-75.0) 07/23/19 05:04 Lymph % (Auto) 26.8 % (21.0-51.0) 07/23/19 05:04 [place] % (Auto) 9.4 % (0.0-13.0) 07/23/19 05:04 Eos % (Auto) 3.4 % (0.9-2.9) H 07/23/19 05:04 Baso % (Auto) 0.7 % (0.2-1.0) 07/23/19 05:04 Neut # (Auto) 4.2 x10^3/uL (2.2-4.8) 07/23/19 05:04 Lymph # (Auto) 1.9 X10^3/uL (1.3-2.9) 07/23/19 05:04 [place] # (Auto) 0.7 x10^3/uL (0.3-0.8) 07/23/19 05:04 Eos # (Auto) 0.2 x10^3/uL (0.0-0.2) 07/23/19 05:04 Baso # (Auto) 0.1 X10^3/uL (0.0-0.1) 07/23/19 05:04 Absolute Nucleated RBC 0.0 /100WBC 07/23/19 05:04 PT 13.3 SECONDS (11.8-14.3) 07/20/19 14:02 INR Target Range - 07/20/19 14:02 INR 1.05 (0.8-1.3) 07/20/19 14:02 APTT 30.8 SECONDS (22.9-36.5) 07/20/19 14:02 PTT Comment - 07/20/19 14:02 Fibrinogen 359 mg/dL (239-489) 07/20/19 14:02 D-Dimer < 100 ng/mL (0-400) 07/20/19 14:02 Sodium 142 mmol/L (136-145) 07/23/19 05:04 Corrected Sodium TNP 07/23/19 05:04 Potassium 4.2 mmol/L (3.5-5.1) 07/23/19 05:04 Chloride 108 mmol/L (98-107) H 07/23/19 05:04 Carbon Dioxide 26.7 mmol/L (21-32) 07/23/19 05:04 BUN 6 mg/dL (7-18) L 07/23/19 05:04 Creatinine 0.97 mg/dL (0.70-1.30) 07/23/19 05:04 Est GFR (MDRD) Af Amer > 60 (>60) 07/23/19 05:04 Est GFR (MDRD) Non-Af > 60 (>60) 07/23/19 05:04 Glucose 105 mg/dL (65-99) H 07/23/19 05:04 Calcium 8.4 mg/dL (8.5-10.1) L 07/23/19 05:04 Corrected Calcium 9.1 mg/dL (8.5-10.1) 07/23/19 05:04 Magnesium 2.0 mg/dL (1.7-2.9) 07/20/19 14:02 Total Bilirubin 0.50 mg/dL (0.2-1.0) 07/23/19 05:04 AST 13 Units/L (15-37) L 07/23/19 05:04 ALT 16 Units/L (12-78) 07/23/19 05:04 Alkaline Phosphatase 29 Units/L (46-116) L 07/23/19 05:04 Creatine Kinase 50 Units/L (39-308) 07/20/19 14:02 CK-MB (CK-2) < 1.0 ng/mL (0-4.0) 07/20/19 14:02 CK/CKMB % Calc 2.0 % (<4) 07/20/19 14:02 Troponin I < 0.02 ng/mL (0-1.5) 07/20/19 14:02 Total Protein 6.2 g/dL (6.4-8.2) L 07/23/19 05:04 Albumin 3.1 g/dL (3.4-5.0) L 07/23/19 05:04 Globulin 3.1 g/dL (2.5-4.5) 07/23/19 05:04 Albumin/Globulin Ratio 1.0 Ratio (1.1-2.1) L 07/23/19 05:04 Triglycerides 41 mg/dL (0-150) 07/22/19 04:40 Cholesterol 131 mg/dL (0-200) 07/22/19 04:40 LDL Cholesterol, Calc 73 mg/dL (0-100) 07/22/19 04:40 HDL Cholesterol 50 mg/dL (40-60) 07/22/19 04:40 Cholesterol/HDL Ratio 2.6 (0.0-5.0) 07/22/19 04:40 TSH 3rd Generation 3.532 uIU/mL (0.358-3.74) 07/21/19 04:34 Specimen Type Random urine 07/20/19 14:13 Urine Color Yellow (YELLOW) 07/20/19 14:13 Urine Appearance Clear (CLEAR) 07/20/19 14:13 Urine pH 5.0 (5.0 - 8.0) 07/20/19 14:13 Ur Specific [place] 1.025 (1.000-1.030) 07/20/19 14:13 Urine Protein Negative (NEGATIVE) 07/20/19 14:13 Urine Glucose (UA) Negative (NEGATIVE) 07/20/19 14:13 Urine Ketones 3+ (NEGATIVE) 07/20/19 14:13 Urine Occult Blood Negative (NEGATIVE) 07/20/19 14:13 Urine Nitrite Negative (NEGATIVE) 07/20/19 14:13 Urine Bilirubin Negative (NEGATIVE) 07/20/19 14:13 Urine Urobilinogen Normal (NORMAL) 07/20/19 14:13 Ur Leukocyte Esterase Negative (NEGATIVE) 07/20/19 14:13 Urine Opiates Screen Negative (NEG=<300) 07/20/19 14:13 Urine Methadone Screen Negative (NEG=<300) 07/20/19 14:13 Ur Barbiturates Screen Negative (NEG=<200) 07/20/19 14:13 Ur Phencyclidine Scrn Negative (NEG=<25) 07/20/19 14:13 Ur Amphetamines Screen Negative (NEG=<1000) 07/20/19 14:13 U Benzodiazepines Scrn Negative (NEG=<200) 07/20/19 14:13 Urine Cocaine Screen Negative (NEG=<300) 07/20/19 14:13 U Marijuana (THC) Screen Negative (NEG=<50) 07/20/19 14:13 Ethyl Alcohol mg/dL < 3 mg/dL (0-19.9) 07/20/19 14:02 RPR Nonreactive (NONREACTIVE) 07/21/19 04:34 Reason For Visit: AMS R/O CVA, CONFUSION, DEHYDRATION,ALCOHOL USE Discharge Date Discharge Date: 07/23/19 Discharge Diagnosis All Active Problems Weakness (Acute) Confusion (Acute) Aphasia (Acute) Mixed hyperlipidemia (Chronic) Altered mental status (Acute) COPD (chronic obstructive pulmonary disease) (Acute) Acute alteration in mental status (Acute) Confusion with non-focal neuro exam (Acute) Admits to alcohol use (Acute) Plan of Treatment: Continue with present treatment and follow up plan. Pt is to keep follow up appointment as instructed and take medications as ordered. Discharge Medications Discharge Medications: No Known Drug Allergies Allergy (Verified 07/20/19 13:39) CONTINUE taking the following medications NK 07/20/19 [History] Follow up and Referral Follow Up: 1 Week Discharge Disposition Discharge Disposition: Home
[2019-07-23 09:20] VITALS: BP 113/69
[2019-07-23] MEDS: LIPITOR TAB 40 MG PO SCH (09:21)
[2019-07-23] MEDS: TAB-A-VITE PO SCH (09:21)
[2019-07-23] MEDS: VITAMIN B-1 PO SCH (09:21)
[2019-07-23] MEDS: ASPIRIN 81 MG CHEWTAB PO SCH (09:21)
== END 2019-07-23 10:00 | disposition home or self-care (01) ==
LOC: ER 13:12 → MED/SURG 13:12
PROVIDERS: ADMIT Family Medicine; ATTEND Family Medicine
DX: R41.82 Altered mental status, unspecified; F10.99 Alcohol use, unspecified with unspecified alcohol-induced disorder; R47.01 Aphasia; E86.0 Dehydration; J44.9 Chronic obstructive pulmonary disease, unspecified; R51 Headache; R53.1 Weakness
CPT/HCPCS: 36415; 70450; 70551; 71010; 71045; 80053; 80061; 80307; 80320; 81003; 82550; 82553; 83735; 84443; 84484; 85025; 85378; 85384; 85610; 85730; 86592; 86701; 86703; 87389; 93005; 93306; 93880; 96365; 96367; 96374; 99284; A4222; G0378; G0434; G6040; J1885; J3411; J3490; J7030